=== PATIENT | male | born 1955 | race Caucasian/White ===

== ENCOUNTER 2017-05-31 10:13 | Inpatient (IN) | payer OTHER ==
[~2017-05-31] VITALS: Ht 167.6 cm; Wt 87.5 kg
[~2017-05-31 10:13] MED LIST: AMITRIPTYLINE H25 MG; ASA81 MG PO; AVAPRO150 MG PO; AZITHROMYCIN500 MG PO; CEFEPIME HCL2 G/VIAL IV; CELEBREX 200MG; CITALOPRAM HBR20 MG; COUMADIN5 MG PO; Coreg PO; FAMOTIDINE10 MG; FENOFIBRATE48 MG; FLUCONAZOLE 400 MG IV; GASTRACE CAPSU1 EACH; IBUPROFEN800 MG PO; KLONOPIN0.5 MG/TAB; LOPRESSOR25 MG; LOVENOX40 MG/0.4 SUBCUTANEO; METFORMIN HCL500 M2; NEURONTIN800 MG; NEXIUM40 MG/PACK PO; NORFLEX100 MG; NORVASC 5MG TAB PO; NOVOLOG100 UNIT/1; Neurin-Sl Tablet Sl SL; PLAVIX75 MG; POM (MEDICAMENTO EN PHA) PO; PRE PROTEIN 2030 ML PO; PYRIDOXINE HCL100 MG PO; RISPERDAL1 MG; TAMS0.4C PO; TUSSIONEX PENNKI5 ML PO; ULTRACET PO; VITAMIN D5000 UNIT; XOPENEX HFA15 GM IH; XOPENEX0.63 MG/3 IH; ZOFRAN4 MG PO
[2017-06-08] MEDS ORDERED: GASTRACE CAPSU1 EACH PO (11:03)
[2017-06-08] MEDS ORDERED: FENOFIBRATE48 MG OP (11:03)
[2017-06-08] MEDS ORDERED: PEPCID20 MG PO (11:03)
[2017-06-08] MEDS ORDERED: PLAVIX75 MG PO (11:03)
[2017-06-08] MEDS ORDERED: VITAMIN D5000 UNIT PO (11:19)
[2017-06-08] MEDS ORDERED: VITAMIN B-121000 MC2 SL (11:19)
[2017-06-08] MEDS ORDERED: INTRINSI B12-F1 EACH PO (11:19)
== END 2017-06-08 11:31 | disposition home or self-care (01) | DRG 439 ==
LOC: ER 10:13 → SEC-K 16:25 → MEDI 16:25
PROC: 3E0336Z Introduction of Nutritional Substance into Peripheral Vein, Percutaneous Approach (ICD-10-PCS; principal; 2017-05-31)
PROC: 3E0F7GC Introduction of Other Therapeutic Substance into Respiratory Tract, Via Natural or Artificial Opening (ICD-10-PCS; 2017-05-31)
PROC: BW21ZZZ Computerized Tomography (CT Scan) of Abdomen and Pelvis (ICD-10-PCS; 2017-05-31)
PROC: 4A033R1 Measurement of Arterial Saturation, Peripheral, Percutaneous Approach (ICD-10-PCS; 2017-06-02)
PROC: BF37ZZZ Magnetic Resonance Imaging (MRI) of Pancreas (ICD-10-PCS; 2017-06-04)
DX: K85.80 Other acute pancreatitis without necrosis or infection (principal); N17.8 Other acute kidney failure; D68.8 Other specified coagulation defects; E87.1 Hypo-osmolality and hyponatremia; E86.0 Dehydration; E11.22 Type 2 diabetes mellitus with diabetic chronic kidney disease; E11.65 Type 2 diabetes mellitus with hyperglycemia; I12.9 Hypertensive chronic kidney disease with stage 1 through stage 4 chronic kidney disease, or unspecified chronic kidney disease; N18.1 Chronic kidney disease, stage 1; R09.02 Hypoxemia; G47.33 Obstructive sleep apnea (adult) (pediatric); Z86.73 Personal history of transient ischemic attack (TIA), and cerebral infarction without residual deficits; Z79.4 Long term (current) use of insulin; E88.09 Other disorders of plasma-protein metabolism, not elsewhere classified; E87.5 Hyperkalemia

== ENCOUNTER 2017-09-01 07:45 | Inpatient (IN) | payer OTHER ==
[~2017-09-01] VITALS: Ht 167.6 cm; Wt 86.6 kg
[~2017-09-01 07:45] MED LIST changes: +FENOFIBRATE48 MG OP; +GASTRACE CAPSU1 EACH PO; +INTRINSI B12-F1 EACH PO; +PEPCID20 MG PO; +PLAVIX75 MG PO; +VITAMIN B-121000 MC2 SL; +VITAMIN D5000 UNIT PO
[2017-09-04] MEDS ORDERED: VITAMIN D5000 UNIT PO (13:16)
[2017-09-04] MEDS ORDERED: NOVOLOG MI100 UNIT/1 SUBCUTANEO (13:16)
[2017-09-04] MEDS ORDERED: INTRINSI B12-F1 EACH PO (13:16)
[2017-09-04] MEDS ORDERED: VIOKACE 10,4401 EACH PO (13:16)
[2017-09-04] MEDS ORDERED: FENOFIBRATE48 MG OP (13:16)
[2017-09-04] MEDS ORDERED: PEPCID20 MG PO (13:16)
[2017-09-04] MEDS ORDERED: VITAMIN B-121000 MC2 SL (13:16)
[2017-09-04] MEDS ORDERED: PLAVIX75 MG PO (13:16)
== END 2017-09-04 14:41 | disposition home or self-care (01) | DRG 439 ==
LOC: ER 07:45 → MEDI 16:08
PROC: BW20ZZZ Computerized Tomography (CT Scan) of Abdomen (ICD-10-PCS; principal; 2017-09-02)
DX: K85.80 Other acute pancreatitis without necrosis or infection (principal); N17.8 Other acute kidney failure; Z79.4 Long term (current) use of insulin; E11.22 Type 2 diabetes mellitus with diabetic chronic kidney disease; I12.9 Hypertensive chronic kidney disease with stage 1 through stage 4 chronic kidney disease, or unspecified chronic kidney disease; N18.1 Chronic kidney disease, stage 1; E86.0 Dehydration; Z86.73 Personal history of transient ischemic attack (TIA), and cerebral infarction without residual deficits

== ENCOUNTER 2017-09-15 19:44 | Emergency (ER) | payer OTHER ==
[~2017-09-15] VITALS: Ht 172.7 cm; Wt 81.6 kg
[~2017-09-15 19:44] MED LIST changes: +NOVOLOG MI100 UNIT/1 SUBCUTANEO; +VIOKACE 10,4401 EACH PO
== END 2017-09-15 23:39 | disposition home or self-care (01) ==
LOC: ER 19:44
DX: K58.8 Other irritable bowel syndrome (principal)

== ENCOUNTER 2017-10-14 13:19 | Inpatient (IN) | payer OTHER ==
[~2017-10-14] VITALS: Ht 167.6 cm; Wt 86.2 kg
[2017-10-14] MEDS ORDERED: GASTRACE CAPSU1 EACH (13:55)
[2017-10-20] MEDS ORDERED: GASTRACE CAPSU1 EACH PO (15:53)
[2017-10-20] MEDS ORDERED: VITAMIN B-121000 MC2 SL (15:53)
[2017-10-20] MEDS ORDERED: PLAVIX75 MG PO (15:53)
[2017-10-20] MEDS ORDERED: INTRINSI B12-F1 EACH PO (15:53)
[2017-10-20] MEDS ORDERED: FENOFIBRATE48 MG OP (15:53)
[2017-10-20] MEDS ORDERED: PEPCID20 MG PO (15:53)
[2017-10-20] MEDS ORDERED: Intestinex CAP PO (15:53)
[2017-10-20] MEDS ORDERED: VITAMIN D5000 UNIT PO (15:53)
[2017-10-20] MEDS ORDERED: NOVOLOG MI100 UNIT/1 SUBCUTANEO (15:53)
== END 2017-10-20 17:58 | disposition home or self-care (01) | DRG 439 ==
LOC: ER 13:19 → MEDI 19:42
PROC: 3E0436Z Introduction of Nutritional Substance into Central Vein, Percutaneous Approach (ICD-10-PCS; principal; 2017-10-16)
PROC: 02HV33Z Insertion of Infusion Device into Superior Vena Cava, Percutaneous Approach (ICD-10-PCS; 2017-10-16)
PROC: BW30Y0Z Magnetic Resonance Imaging (MRI) of Abdomen using Other Contrast, Unenhanced and Enhanced (ICD-10-PCS; 2017-10-19)
DX: K85.80 Other acute pancreatitis without necrosis or infection (principal); N17.8 Other acute kidney failure; K86.3 Pseudocyst of pancreas; E11.22 Type 2 diabetes mellitus with diabetic chronic kidney disease; E11.65 Type 2 diabetes mellitus with hyperglycemia; I12.9 Hypertensive chronic kidney disease with stage 1 through stage 4 chronic kidney disease, or unspecified chronic kidney disease; N18.1 Chronic kidney disease, stage 1; Z86.73 Personal history of transient ischemic attack (TIA), and cerebral infarction without residual deficits; G47.33 Obstructive sleep apnea (adult) (pediatric); E86.0 Dehydration
CPT/HCPCS: 74182

== ENCOUNTER 2018-06-27 08:34 | Outpatient (CLI) | payer OTHER ==
[~2018-06-27 08:34] MED LIST changes: +Intestinex CAP PO
== END 2018-06-27 08:47 | disposition home or self-care (01) ==
LOC: MRI 08:34
DX: K85.00 Idiopathic acute pancreatitis without necrosis or infection (principal); K86.1 Other chronic pancreatitis
CPT/HCPCS: 74181

== ENCOUNTER 2019-04-09 15:13 | Inpatient (IN) | payer OTHER ==
[~2019-04-09] VITALS: Ht 167.6 cm; Wt 86.2 kg
--- NOTE | 2019-04-09 15:21 | NUR ---
SE RECIBE PACIENTE QUE REFIERE PINKY DOLOR ABDOMINAL DESDE DANIEL.
--- NOTE | 2019-04-09 16:59 | NUR ---
PTE ES EEVALUADA POR DR. LEBLANC QUIEN ORDENA TRATMAMIENTO. RN. Anabelle MCCALL EDUCA A PTE SOBRE ORDENES MEDICAS Y REFIERE COMPRENDER. CANALIZA Y COLECTA MUESTRAS DE LABORATORIO BAJO MEDIDAS ASEPTICAS. ADMINISTRA MEDICAMENTO ANAND ORDEN MEDICA Y SE MANTIENE BAJO OBSERVACION POR CAMBIOS EN CONDICION.
[2019-04-10] MEDS ORDERED: INTESTINEX680 M1 PO (15:47)
[2019-04-11] MEDS ORDERED: NOVOLOG MI100 UNIT/1 SUBCUTANEO (14:59)
[2019-04-11] MEDS ORDERED: PEPCID20 MG PO (14:59)
[2019-04-11] MEDS ORDERED: MUCINEX600 MG PO (14:59)
[2019-04-11] MEDS ORDERED: PLAVIX75 MG PO (14:59)
[2019-04-11] MEDS ORDERED: POM (MEDICAMENTO EN PO (14:59)
[2019-04-11] MEDS ORDERED: INTESTINEX680 M1 PO (14:59)
[2019-04-11] MEDS ORDERED: TOPROL XL25 M1 PO (14:59)
[2019-04-11] MEDS ORDERED: FENOFIBRATE48 MG OP (14:59)
[2019-04-11] MEDS ORDERED: BENZONATATE100 MG PO (14:59)
== END 2019-04-11 15:24 | disposition home or self-care (01) | DRG 682 ==
LOC: ER 15:13 → MEDI 21:07
PROVIDERS: ADMIT Internal Medicine Geriatric Medicine
DX: N17.8 Other acute kidney failure (principal); K85.80 Other acute pancreatitis without necrosis or infection; I12.9 Hypertensive chronic kidney disease with stage 1 through stage 4 chronic kidney disease, or unspecified chronic kidney disease; E11.22 Type 2 diabetes mellitus with diabetic chronic kidney disease; N18.3 Chronic kidney disease, stage 3 (moderate); G47.33 Obstructive sleep apnea (adult) (pediatric); Z79.4 Long term (current) use of insulin

== ENCOUNTER 2020-08-12 07:06 | Outpatient (CLI) | payer OTHER ==
[~2020-08-12 07:06] MED LIST changes: +BENZONATATE100 MG PO; +INTESTINEX680 M1 PO; +MUCINEX600 MG PO; +POM (MEDICAMENTO EN PO; +TOPROL XL25 M1 PO
== END 2020-08-12 07:23 | disposition home or self-care (01) ==
LOC: TOM 07:06
PROVIDERS: ATTEND Internal Medicine Gastroenterology
DX: K63.5 Polyp of colon (principal); Z86.010 Personal history of colon polyps; K56.600 Partial intestinal obstruction, unspecified as to cause

== ENCOUNTER 2020-11-09 22:44 | Emergency (ER) | payer OTHER ==
[~2020-11-09] VITALS: Ht 167.6 cm; Wt 89.8 kg
[2020-11-10] MEDS ORDERED: PROTONIX20 MG PO (03:43)
[2020-11-10] MEDS ORDERED: INTESTINEX680 M2 PO (03:43)
[2020-11-10] MEDS ORDERED: PEPCID AC20 MG PO (03:43)
[2020-11-10] MEDS ORDERED: PERCOCET 5-3251 EACH PO (03:43)
== END 2020-11-10 07:25 | disposition home or self-care (01) ==
LOC: ER 22:44
DX: M79.3 Panniculitis, unspecified (principal); K86.1 Other chronic pancreatitis; R10.13 Epigastric pain

== ENCOUNTER 2021-04-06 07:09 | Outpatient (CLI) | payer OTHER ==
[~2021-04-06 07:09] MED LIST changes: +INTESTINEX680 M2 PO; +PEPCID AC20 MG PO; +PERCOCET 5-3251 EACH PO; +PROTONIX20 MG PO
== END 2021-04-06 07:11 | disposition home or self-care (01) ==
LOC: SONOGRAMA 07:09
DX: K55.9 Vascular disorder of intestine, unspecified (principal)

== ENCOUNTER 2021-04-17 07:51 | Outpatient (CLI) | payer OTHER | END 2021-04-17 07:54 | disposition home or self-care (01) | LOC: LAB 07:51 | PROVIDERS: ATTEND Internal Medicine Geriatric Medicine | DX: D69.49 Other primary thrombocytopenia (principal) ==

== ENCOUNTER 2021-06-01 09:54 | Outpatient (CLI) | payer OTHER | END 2021-06-01 09:58 | disposition home or self-care (01) | LOC: RAD 09:54 | PROVIDERS: ATTEND Internal Medicine | DX: M25.511 Pain in right shoulder (principal) ==

== ENCOUNTER 2021-06-10 09:40 | Outpatient (CLI) | payer OTHER | END 2021-06-10 09:41 | disposition home or self-care (01) | LOC: SONOGRAMA 09:40 | PROVIDERS: ATTEND Physical Medicine & Rehabilitation | DX: M25.511 Pain in right shoulder (principal) ==

== ENCOUNTER 2021-10-23 08:04 | Outpatient (CLI) | payer OTHER | END 2021-10-23 08:05 | disposition home or self-care (01) | LOC: RAD 08:04 | PROVIDERS: ATTEND Orthopaedic Surgery | DX: I10 Essential (primary) hypertension (principal) ==

== ENCOUNTER 2021-10-28 05:30 | Day surgery (SDC) | payer OTHER ==
[~2021-10-28 05:30] MED LIST changes: +ATORVASTATIN CA40 MG PO; +AVAPRO300 MG PO; +CREON DR 3,0001 EACH PO; +FENOFIB PO; +HUMULIN 70100 UNIT/1; +NEURIN SL PO; +PEPCID AC10 MG PO
== END 2021-10-28 11:55 | disposition home or self-care (01) ==
LOC: CIR.AMB 05:30
PROVIDERS: ATTEND Orthopaedic Surgery
DX: M75.121 Complete rotator cuff tear or rupture of right shoulder, not specified as traumatic (principal); M75.21 Bicipital tendinitis, right shoulder; M24.111 Other articular cartilage disorders, right shoulder; Z20.822 Contact with and (suspected) exposure to COVID-19; Z88.8 Allergy status to other drugs, medicaments and biological substances; I10 Essential (primary) hypertension; Z87.891 Personal history of nicotine dependence; Z86.73 Personal history of transient ischemic attack (TIA), and cerebral infarction without residual deficits; F31.9 Bipolar disorder, unspecified; E11.9 Type 2 diabetes mellitus without complications

== ENCOUNTER 2021-12-24 07:07 | Outpatient (CLI) | payer OTHER | END 2021-12-24 07:15 | disposition home or self-care (01) | LOC: MRI 07:07 | PROVIDERS: ATTEND Internal Medicine Gastroenterology | DX: K57.30 Diverticulosis of large intestine without perforation or abscess without bleeding (principal); Z86.010 Personal history of colon polyps; K86.1 Other chronic pancreatitis | CPT/HCPCS: 74181 ==

== ENCOUNTER 2022-07-23 08:19 | Emergency (ER) | payer OTHER ==
[~2022-07-23] VITALS: Ht 167.6 cm; Wt 89.8 kg
== END 2022-07-23 13:33 | disposition home or self-care (01) ==
LOC: ER 08:19
DX: G51.0 Bell's palsy (principal); E11.649 Type 2 diabetes mellitus with hypoglycemia without coma; Z79.4 Long term (current) use of insulin; Z88.8 Allergy status to other drugs, medicaments and biological substances; Z86.73 Personal history of transient ischemic attack (TIA), and cerebral infarction without residual deficits; I10 Essential (primary) hypertension; F32.89 Other specified depressive episodes

== ENCOUNTER 2023-11-07 07:03 | Outpatient (CLI) | payer OTHER | END 2023-11-07 07:11 | disposition home or self-care (01) | LOC: MRI 07:03 | PROVIDERS: ATTEND Internal Medicine Gastroenterology | DX: K85.00 Idiopathic acute pancreatitis without necrosis or infection (principal); D13.2 Benign neoplasm of duodenum; K86.1 Other chronic pancreatitis; Z11.3 Encounter for screening for infections with a predominantly sexual mode of transmission | CPT/HCPCS: 74181 ==

== ENCOUNTER 2024-11-26 10:35 | Outpatient (CLI) | payer OTHER | END 2024-11-26 10:36 | disposition home or self-care (01) | LOC: NUCLEAR 10:35 | PROVIDERS: ATTEND Internal Medicine Geriatric Medicine | DX: I70.8 Atherosclerosis of other arteries (principal); I70.269 Atherosclerosis of native arteries of extremities with gangrene, unspecified extremity ==